=== PATIENT | female | born 1980 | race Caucasian/White ===

== ENCOUNTER 2017-10-12 20:43 | Emergency (ER) | payer MEDICAID ==
[2017-10-13 03:31] VITALS: BP 97/56
== END 2017-10-13 03:31 | disposition home or self-care (01) ==
LOC: ED 20:43
DX: J45.909 Unspecified asthma, uncomplicated (principal)
CPT/HCPCS: 87804; J7613; J7644

== ENCOUNTER 2017-10-13 17:57 | Emergency (ER) | payer MEDICAID ==
[2017-10-13 21:16] LABS: BASOPHIL % 0.9 % (0-2); PLATELET COUNT 203 x10^3mcL (130-400); RED CELL DISTRIBUTION WIDTH 13.4 % (11.5-14.5)
[2017-10-13 21:22] LABS: CALCIUM 9.3 mg/dL (8.5-10.1); CARBON DIOXIDE 30.5 mmol/L (21-32); CHLORIDE SERUM 107 mmol/L (98-107); CREATININE SERUM 0.8 mg/dL (0.6-1.0); GFR1 > 60 mL/min; GLUCOSE SERUM 78 mg/dL (74-106); SODIUM SERUM 143 mmol/L (136-145)
[2017-10-13 22:18] VITALS: BP 112/58
== END 2017-10-13 22:18 | disposition home or self-care (01) ==
LOC: ED 17:57
PROVIDERS: Emergency Medicine
DX: J98.01 Acute bronchospasm (principal); F17.210 Nicotine dependence, cigarettes, uncomplicated; G62.9 Polyneuropathy, unspecified; Z86.79 Personal history of other diseases of the circulatory system
CPT/HCPCS: 36415; J2930; J7620